=== PATIENT | male | born 1950 | race Two or more races ===

== ENCOUNTER 2022-10-12 19:09 | Emergency (ER) | payer OTHER ==
[~2022-10-12] VITALS: Ht 170.2 cm; Wt 82.6 kg
--- NOTE | 2022-10-12 19:45 | NUR ---
BIB SON FOR C.O FEVER AND COUGH. TESTED + FOR CCOVID 19 TODAY. AFEBRILE ON TRIAGE. AMBULATORY, PLACED IN BED, BREATHING EVEN AND UNLABORED SATURATING AT 97%RA.
--- NOTE | 2022-10-12 19:55 | NUR ---
AT BEDSIDE FOR EVAL.
--- NOTE | 2022-10-12 20:20 | NUR ---
X-RAY TECH AT BEDSIDE
--- NOTE | 2022-10-12 21:32 | NUR ---
Patient discharged to home in stable condition. Written and verbal after care instructions given. Patient verbalizes understanding of instruction.
[2022-10-12 21:33] VITALS: BP 145/73
== END 2022-10-12 21:32 | disposition home or self-care (01) ==
LOC: ER 19:15
DX: U07.1 COVID-19 (principal); I10 Essential (primary) hypertension; Z98.890 Other specified postprocedural states
CPT/HCPCS: 71045-TC